=== PATIENT | female | born 1980 | race Caucasian/White ===

== ENCOUNTER 2017-08-01 09:00 | Emergency (ER) | payer BC ==
[2017-08-01] MEDS ORDERED: Sodium Chloride 0.9% 10 ML Syringe FLUSH PRN (09:12)
[2017-08-01] MEDS ORDERED: Sodium Chloride 0.9% 1,000 ML IV ONE (09:12)
[2017-08-01 09:15] VITALS: BP 120/74
[2017-08-01] MEDS ORDERED: Ketorolac 30 MG/ML SDV IVPUSH ONE (09:36)
[2017-08-01] MEDS ORDERED: LORazepam 2 MG/ML Syringe IVPUSH ONE (09:37)
[2017-08-01] MEDS ORDERED: Metoclopramide 10 MG/2 ML SDV IVPUSH ONE (09:37)
--- NOTE | 2017-08-01 10:51 | EDM.PDOC ---
ED HPI GENERAL MEDICAL PROBLEM - General Chief Complaint: Headache Stated Complaint: migraine [phone] Time Seen by Provider: 08/01/17 09:30 Source of Information: Reports: Patient, RN, RN Notes Reviewed History Limitations: Reports: No Limitations - History of Present Illness INITIAL COMMENTS - FREE TEXT/NARRATIVE: Pt presents to the ER with c/o migraine headache. She states she has a history of migraines with aura, and this headache began at 0745. She states she took her prescribed medication for migraine without relief. She rates pain at 8/10 with numbness and tingling down the arms bilaterally as well as in the face. She admits to being treated with abx for a sinus infection. Onset: Today, Sudden Duration: Getting Worse Location: Reports: Head Quality: Reports: Ache, Throbbing Severity: Severe Improves with: Reports: None Worsens with: Reports: None Associated Symptoms: Reports: Headaches, Nausea/Vomiting Headache Pain Score (Numeric/FACES): 8 - Related Data Allergies Allergy/AdvReac Type Severity Reaction Status Date / Time morphine Allergy Nausea and Verified 08/01/17 09:04 Vomiting venom-honey bee Allergy Shortness Verified 08/01/17 09:04 of Breath Home Meds: Home Meds EPINEPHrine [Epipen] 1 injection IM ASDIRECTED PRN 09/24/16 [History] Hydrocodone/Acetaminophen [Hydrocodon-Acetaminophen 5-325] 1 - 2 tab PO Q6H PRN 09/24/16 [History] Ibuprofen 600 mg PO Q6H PRN 09/24/16 [History] Propranolol [Inderal] 20 mg PO BID 09/24/16 [History] Rizatriptan Benzoate [Rizatriptan] 10 mg BUCCAL ASDIRECTED PRN 09/24/16 [History ] Past Medical History Cardiovascular History: Reports: Hypertension Musculoskeletal History: Reports: Other (See Below) Other Musculoskeletal History: chronic pain sees pain management Neurological History: Reports: Migraines Psychiatric History: Reports: Anxiety, Depression Dermatologic History: Reports: Melanoma - Infectious Disease History Infectious Disease History: Reports: Chicken Pox - Past Surgical History GI Surgical History: Reports: Appendectomy, Cholecystectomy Female Surgical History: Reports: Tubal Ligation Social & Family History - Family History Family Medical History: Noncontributory - Tobacco Use Smoking Status *Q: Former Smoker Years of Tobacco use: 7 Packs/Tins Daily: 0.4 Used Tobacco, but Quit: Yes Month Tobacco Last Used: 2 weeks - Caffeine Use Caffeine Use: Reports: Coffee - Alcohol Use Date of Last Drink: 07/28/17 - Recreational Drug Use Recreational Drug Use: No ED ROS GENERAL - Review of Systems Review Of Systems: ROS reveals no pertinent complaints other than HPI. - Physical Exam Exam: See Below Exam Limited By: No Limitations General Appearance: Alert, WD/WN, Moderate Distress Eye Exam: Bilateral Eye: EOMI, Normal Inspection Ears: Normal External Exam, Hearing Grossly Normal Nose: Normal Inspection Throat/Mouth: Normal Inspection, Normal Voice, No Airway Compromise Head Exam: Atraumatic, Normocephalic Neck: Normal Inspection, Supple, Non-Tender, Full Range of Motion Respiratory/Chest: No Respiratory Distress, Lungs Clear, Normal Breath Sounds, No Accessory Muscle Use, Chest Non-Tender Cardiovascular: Normal Peripheral Pulses, Regular Rate, Rhythm, No Edema, No Gallop, No JVD, No Murmur, No Rub GI/Abdominal: Normal Bowel Sounds, Soft, Non-Tender (Female) Exam: Deferred Rectal (Female) Exam: Deferred Neuro Exam (Abbreviated): Alert, Oriented, Normal Cognition, Normal Gait, No Motor/Sensory Deficits Back Exam: Normal Inspection, Full Range of Motion Extremities: Normal Inspection, Normal Range of Motion, Non-Tender, Other ( numbness and tinglining to arms bilaterally) Psychiatric: Normal Affect, Normal Mood, Flat Affect Skin Exam: Warm, Dry, Intact, Normal Color, No Rash Course - Vital Signs Last Recorded V/S: Last Vital Signs Temp 97.6 F 08/01/17 09:14 Pulse 64 08/01/17 09:14 Resp 16 08/01/17 09:14 BP 120/74 08/01/17 09:14 Pulse Ox 99 08/01/17 09:14 - Orders/Labs/Meds Orders: Active Orders 24 hr Category Date Time Status Peripheral IV Care [RC] . DIRECTED Care 08/01/17 09:12 Active Sodium Chloride 0.9% [Saline Flush] Med 08/01/17 09:12 Active 10 ml FLUSH ASDIRECTED PRN Peripheral IV Insertion Adult [OM.PC] Stat Oth 08/01/17 09:12 Ordered Medication Orders Sodium Chloride (Saline Flush) 10 ml FLUSH ASDIRECTED PRN PRN Reason: Keep Vein Open Last Admin: 08/01/17 09:23 Dose: 10 ml Meds: Medications Generic Name Dose Route Start Last Admin Trade Name Carly PRN Reason Stop Dose Admin Sodium Chloride 10 ml 08/01/17 09:12 08/01/17 09:23 Saline Flush FLUSH 10 ml ASDIRECTED PRN Administration Keep Vein Open Discontinued Medications Generic Name Dose Route Start Last Admin Trade Name Carly PRN Reason Stop Dose Admin Sodium Chloride 1,000 mls @ 999 mls/hr 08/01/17 09:12 08/01/17 09:23 Normal Saline IV 08/01/17 10:12 999 mls/hr .BOLUS ONE Administration Ketorolac Tromethamine 30 mg 08/01/17 09:36 08/01/17 09:43 Toradol IVPUSH 08/01/17 09:37 30 mg ONETIME ONE Administration Lorazepam 1 mg 08/01/17 09:37 08/01/17 09:42 Ativan IVPUSH 08/01/17 09:38 1 mg ONETIME ONE Administration Metoclopramide HCl 10 mg 08/01/17 09:37 08/01/17 09:43 Reglan IVPUSH 08/01/17 09:38 10 mg ONETIME ONE Administration Departure - Departure Time of Disposition: 10:51 Disposition: Home, Self-Care 01 Condition: Fair Clinical Impression: Migraine - Discharge Information Instructions: Recurrent Migraine Headache, [id number] Referrals: Ysabel Boyer MD [Primary Care Provider] - Forms: ED Department Discharge Additional Instructions: Follow up with your primary care facility as needed. Rest, drink plenty of fluids. - My Orders Last 24 Hours: My Active Orders 08/01/17 09:12 Peripheral IV Care [RC] . DIRECTED Sodium Chloride 0.9% [Saline Flush] 10 ml FLUSH ASDIRECTED PRN Peripheral IV Insertion Adult [OM.PC] Stat - Assessment/Plan Last 24 Hours: My Active Orders 08/01/17 09:12 Peripheral IV Care [RC] . DIRECTED Sodium Chloride 0.9% [Saline Flush] 10 ml FLUSH ASDIRECTED PRN Peripheral IV Insertion Adult [OM.PC] Stat
== END 2017-08-01 11:05 | disposition home or self-care (01) ==
LOC: DL.ED 09:00
DX: G43.909 Migraine, unspecified, not intractable, without status migrainosus (principal); I10 Essential (primary) hypertension; F32.9 Major depressive disorder, single episode, unspecified; Z87.891 Personal history of nicotine dependence; Z88.5 Allergy status to narcotic agent; Z91.030 Bee allergy status
CPT/HCPCS: 96361; 96374; 96375; 99284; J1885; J2060; J2765; J7030; J7050

== ENCOUNTER 2019-12-12 19:13 | Emergency (ER) | payer BC, OTHER ==
[2019-12-12] MEDS ORDERED: Ondansetron 4 MG Tab.DIS PO ONE (19:34)
[2019-12-12] MEDS ORDERED: Orphenadrine 60 MG/2 ML Inj IM ONE (19:34)
[2019-12-12] MEDS ORDERED: HYDROmorphone 0.5 MG/0.5 ML Syringe IM ONE (19:34)
--- NOTE | 2019-12-12 19:39 | EDM.PDOC ---
ED HPI GENERAL MEDICAL PROBLEM - General Chief Complaint: Back Pain or Injury Stated Complaint: MUSCLE SPASMS, CRAMPING Time Seen by Provider: 12/12/19 19:35 Source of Information: Reports: Patient History Limitations: Reports: No Limitations - History of Present Illness INITIAL COMMENTS - FREE TEXT/NARRATIVE: onset left shoulder pain 4 days ago after doing some yard work then last night moved to right shoulder, took her normal Rx but not helping. tried ice & heat but '0'. hardly slept all night and hurting worse. - Related Data Allergies Allergy/AdvReac Type Severity Reaction Status Date / Time morphine Allergy Nausea and Verified 08/01/17 09:04 Vomiting venom-honey bee Allergy Shortness Verified 08/01/17 09:04 of Breath Home Meds: Home Meds EPINEPHrine [Epipen] 1 injection IM ASDIRECTED PRN 09/24/16 [History] Hydrocodone/Acetaminophen [Hydrocodon-Acetaminophen 5-325] 1 - 2 tab PO Q6H PRN 09/24/16 [History] Ibuprofen 600 mg PO Q6H PRN 09/24/16 [History] Propranolol [Inderal] 20 mg PO BID 09/24/16 [History] Rizatriptan Benzoate [Rizatriptan] 10 mg BUCCAL ASDIRECTED PRN 09/24/16 [History ] Past Medical History Cardiovascular History: Reports: Hypertension Musculoskeletal History: Reports: Other (See Below) Other Musculoskeletal History: chronic pain sees pain management Neurological History: Reports: Migraines Psychiatric History: Reports: Anxiety, Depression Dermatologic History: Reports: Melanoma - Infectious Disease History Infectious Disease History: Reports: Chicken Pox - Past Surgical History GI Surgical History: Reports: Appendectomy, Cholecystectomy Female Surgical History: Reports: Tubal Ligation Social & Family History - Family History Family Medical History: Noncontributory - Caffeine Use Caffeine Use: Reports: Coffee ED ROS GENERAL - Review of Systems Review Of Systems: Comprehensive ROS is negative, except as noted in HPI. ED EXAM, UPPER BACK/NECK PAIN - Physical Exam Exam: See Below Exam Limited By: No Limitations General Appearance: Alert, WD/WN, Mild Distress, Other (crying) Eye Exam: Bilateral Eye: PERRL (pupils ER @ 4mm) Ears Exam: Hearing Grossly Normal Throat/Mouth Exam: Normal Voice, No Airway Compromise Head Exam: Atraumatic Neck Exam: Paraspinous Muscle Tender, Other (right trapez region) Nexus Criteria: No: Posterior, Midline Cervical Tenderness, Evidence of Intoxication, Altered Level of Consciousness, Focal Neurological Deficit, Painful Distraction Injuries Cardiovascular/Respiratory: Regular Rate, Rhythm, No Respiratory Distress GI/Abdominal: Soft, Non-Tender Back Exam: Muscle Spasm, Paraspinal Tenderness, Other (right trapezius region, NV wnl) Neurologic: No Motor/Sensory Deficits, Alert, Oriented x 3 Psychiatric: Tearful Skin Exam: Normal Color, Warm/Dry Lymphatic: No Adenopathy Course - Orders/Labs/Meds Orders: Active Orders 24 hr Category Date Time Status HYDROmorphone [Dilaudid] Med 12/12/19 19:34 Once 0.5 mg IM ONETIME ONE Ondansetron [Zofran ODT] Med 12/12/19 19:34 Once 4 mg PO ONETIME ONE Orphenadrine [Norflex] Med 12/12/19 19:34 Once 60 mg IM ONETIME ONE Departure - Departure Time of Disposition: 19:38 Disposition: Home, Self-Care 01 Condition: Good Clinical Impression: Trapezius muscle spasm - Discharge Information Instructions: Muscle Cramps and Spasms, [id number] Additional Instructions: 1) avoid use of right shoulder next 24 hours 2) continue with regular home meds - My Orders Last 24 Hours: My Active Orders 12/12/19 19:34 HYDROmorphone [Dilaudid] 0.5 mg IM ONETIME ONE Ondansetron [Zofran ODT] 4 mg PO ONETIME ONE Orphenadrine [Norflex] 60 mg IM ONETIME ONE - Assessment/Plan Last 24 Hours: My Active Orders 12/12/19 19:34 HYDROmorphone [Dilaudid] 0.5 mg IM ONETIME ONE Ondansetron [Zofran ODT] 4 mg PO ONETIME ONE Orphenadrine [Norflex] 60 mg IM ONETIME ONE
[2019-12-12 20:23] VITALS: BP 132/65; PULSE 75
== END 2019-12-12 20:05 | disposition home or self-care (01) ==
LOC: DL.ED 19:13
DX: M62.838 Other muscle spasm (principal); I10 Essential (primary) hypertension; Z88.5 Allergy status to narcotic agent; Z91.030 Bee allergy status
CPT/HCPCS: 96372; 99283; A9270; J1170; J2360

== ENCOUNTER 2023-05-09 17:43 | Emergency (ER) | payer BC ==
[2023-05-09] MEDS ORDERED: Sodium Chloride 0.9% 1,000 ML IV ONE (17:52)
[2023-05-09] MEDS ORDERED: Sodium Chloride 0.9% 10 ML Syringe FLUSH PRN (17:52)
[2023-05-09] MEDS ORDERED: Ketorolac 30 MG/ML SDV IVPUSH ONE (17:53)
[2023-05-09] MEDS ORDERED: Metoclopramide 10 MG/2 ML SDV IVPUSH ONE (17:53)
[2023-05-09] MEDS ORDERED: Lidocaine 2% 100 MG/5 ML Syringe ONE (18:27)
[2023-05-09] MEDS ORDERED: Lidocaine 1% 5 ML VIAL ONE (18:32)
[2023-05-09 19:23] VITALS: BP 122/70; PULSE 88
== END 2023-05-09 19:21 | disposition home or self-care (01) ==
LOC: DL.ED 17:43
DX: G43.909 Migraine, unspecified, not intractable, without status migrainosus (principal); I10 Essential (primary) hypertension; Z88.5 Allergy status to narcotic agent; Z91.030 Bee allergy status
CPT/HCPCS: 96361; 96374; 96375; 99283; J1885; J2765; J7030; J3490

== ENCOUNTER 2025-03-26 09:24 | Emergency (ER) | payer OTHER ==
[2025-03-26 10:08] LABS: BASOPHILS PERCENT AUTO 0.6 % (0.0-1.0); EOSINOPHILS PERCENT AUTO 1.3 % (1.0-3.0); LYMPHOCYTES PERCENT AUTO 29.1 % (20.5-50.1); MONOCYTES PERCENT AUTO 8.0 % (2-8); NEUTROPHILS PERCENT AUTO 61.0 % (42.2-75.2); PLATELET COUNT,PLT 250 10^3/uL (150-450); RED BLOOD CELL COUNT 4.68 10^6/uL (4.2-5.4); WHITE BLOOD CELL COUNT,WBC 7.9 10^3/uL (5.0-10.0)
[2025-03-26 10:27] LABS: A/G RATIO 1.0; ALANINE AMINOTRANSFERASE,ALT 28 U/L (14-59); ASPARTATE AMNIOTRANSFERASE,AST 16 U/L (15-37); BILIRUBIN TOTAL 0.5 mg/dL (0.2-1.0); BLOOD UREA NITROGEN,BUN 7 mg/dL (7-18); CARBON DIOXIDE,CO2 25 mmol/L (21-32); CHLORIDE,CL 103 mmol/L (98-107); CREATININE 0.85 mg/dL (0.55-1.02); EST CRCL DRUG DOSING (CG) 79.57 mL/min; ESTIMATED GFR 85 mL/min (>=60); GLUCOSE RANDOM 94 mg/dL (70-99); POTASSIUM,K 4.0 mmol/L (3.5-5.1); PROTEIN TOTAL,TP 8.0 g/dL (6.4-8.2); SODIUM,NA 138 mmol/L (136-145)
[2025-03-26 10:42] LABS: SEDIMENTATION RATE MANUAL 2 mm/hr (0-20)
[2025-03-26 11:37] VITALS: BP 137/85; PULSE 86
== END 2025-03-26 11:35 | disposition home or self-care (01) ==
LOC: DL.ED 09:24
DX: M79.89 Other specified soft tissue disorders (principal); I10 Essential (primary) hypertension; F17.210 Nicotine dependence, cigarettes, uncomplicated; Z90.49 Acquired absence of other specified parts of digestive tract; Z88.5 Allergy status to narcotic agent; Z91.030 Bee allergy status; Z79.899 Other long term (current) drug therapy
CPT/HCPCS: 36415; 73140; 80053; 85025; 85651; 86140; 99283; A9270